=== PATIENT | female | born 1950 | race Caucasian/White ===

== ENCOUNTER 2018-06-22 12:38 | Emergency (ER) | payer MEDICARE, OTHER, SELFPAY ==
[2018-06-22 12:38] VITALS: BP 162/87; PULSE 115; RESP 18; TEMP 37; O2SAT 96; BMI 36.6
[2018-06-22] MEDS: Metoclopramide 10 MG/2 ML Vial IV (13:18)
[2018-06-22] MEDS: 0.9% Normal Saline 1,000 ML 1000 ML IV (13:18)
[2018-06-22 13:37] LABS: AST(SGOT) 46 U/L (15-37); Alanine Aminotransfer ALT/SGPT 87 U/L (13-56); Albumin, Serum 3.5 g/dL (3.2-5.0); Alkaline Phosphatase 110 U/L (45-117); Anion Gap 7 (5-15); BUN 17 mg/dL (7-18); BUN/Creat Ratio 15.2 RATIO (10-20); Bilirubin, Direct 0.13 mg/dL (0.00-0.30); Chloride 104 mmol/L (98-107); Creatinine, Serum 1.12 mg/dL (0.55-1.02); EST Glomerular Filtration Rate 51 mL/min (>60); Est Glom Filt Rate - Afr Amer 62 mL/min (>60); Estimated Creatinine Clearance 36.97 ml/min; Globulin 3.6 g/dL (2.2-4.2); Glucose 240 mg/dL (74-106); Lipase 161 U/L (73-393); Potassium 4.7 mmol/L (3.5-5.1); Protein, Total 7.1 g/dL (6.4-8.2); Sodium Level 139 mmol/L (136-145)
--- NOTE | 2018-06-22 13:37 | NURSING ---
NO LW OR POA
--- NOTE | 2018-06-22 16:09 | ED.DCSUM_ITS ---
- ER Visit Summary Date of Service: 06/22/18 Chief Complaint: Abdominal pain with nausea and vomiting History of Present Illness: The patient is a 68 F who presents with abdominal pain nausea vomiting started today. She reports vomiting twice. She had a large emesis at 0630 after eating 2 pieces of pizza and drinking a glass of milk. Patient does not recall the last time she checked her blood sugar. She is a type I diabetic. She denies blurred vision. He does complain of thirst. She denies orthostatic symptoms. She denies dysuria, frequency, urgency or hematuria. She denies polyuria or nocturia. She denies polydipsia. She denies fever, chills night sweats. She denies any ocular, auditory or visual symptoms. She denies any cardiac or respiratory symptoms. She denies any skin lesions. She denies any intolerance to greasy or fried foods. There is no family history of cholelithiasis. Past medical history type 1 diabetes, hypertension and hypothyroidism. She status post appendectomy and Physical Examination: Vital signs are remarkable and elevated blood pressure 162 /87. Heart rate 115. Head is atraumatic normocephalic. Pupils are equal round reactive. Extraocular muscles are intact. TMs are pearly white with landmarks noted. Nares patent with no drainage. Posterior pharynx without erythema or exudate. Uvula is midline. Mucosa is dry. There is no dysphonia or dysphasia. Trachea is midline. There is no stridor with auscultation of the neck. Heart is regular without murmur, gallop or rub. S1 and S2 are normal. Lungs are clear to auscultation with good movement of air bilaterally. Abdomen is soft with upper quadrant tenderness. Negative Rodriguez sign. No dermatologic lesions noted. No guarding or peritoneal findings. No CVA tenderness noted. She is alert oriented with a nonfocal neurologic exam. Test Results: BMP is remarkable glucose 240 and creatinine 1.12. ALT and AST are 87 and 40 respectively. Lipase is normal. Emergency Department Course and Treatment: Patient was medicated with Reglan. She has passed p.o. challenge. Treatment Plan: Discharged home and follow-up with PCP Dr. Watson Disposition: Discharged home Impression: Bilateral acute upper abdominal pain with nausea and vomiting Hyperglycemia and type I diabetic History of hypertension This note was generated with Dragon dictation software. It may contain incorrect words, spelling, and punctuation that were not noted in review of the chart prior to signing ED Disposition - Plan for ED Patient: Disposition: Home or Assisted Living Chief Complaint: Nausea/Vomiting Instructions: ED Nausea Vomiting Prescriptions: Metoclopramide [Reglan] 10 mg PO 4X/DAY PRN #10 tab PRN Reason: Headache Referrals: Bucky Watson MD [Primary Care Provider] - 1-2 Days if not improving
[2018-06-22 16:29] VITALS: BP 161/76; PULSE 100; RESP 16
== END 2018-06-22 16:30 | disposition home or self-care (01) ==
PROVIDERS: Emergency Provider Emergency Medicine; Family Provider Family Medicine; PCP Family Medicine
DX: R10.12 Left upper quadrant pain (principal); R10.11 Right upper quadrant pain; R11.2 Nausea with vomiting, unspecified; E86.0 Dehydration; R00.0 Tachycardia, unspecified; E10.65 Type 1 diabetes mellitus with hyperglycemia; I10 Essential (primary) hypertension; E66.9 Obesity, unspecified
CPT/HCPCS: 80048; 80076; 83690; 96361; 96374; 99283; J7030; A4216